=== PATIENT | female | born 1985 | race Caucasian/White ===

== ENCOUNTER 2020-02-22 12:36 | Inpatient (IN) | payer SELFPAY ==
[2020-02-22] MEDS ORDERED: Ondansetron PF 4 MG/2 ML Vial IVP PRN (15:43)
[2020-02-22] MEDS ORDERED: Dextrose 5% in Water 1,000 ML IV PRN (15:43)
[2020-02-22] MEDS ORDERED: Calcium Carbonate 500 MG ChewTAB PO PRN (15:43)
[2020-02-22] MEDS ORDERED: Promethazine HCl 25 MG/ML VIAL IM PRN (15:43)
[2020-02-22] MEDS ORDERED: Dextrose 50% Abboject 50 ML SYRINGE SLOW IVP PRN (15:43)
[2020-02-22] MEDS ORDERED: Mag-Al 1200 mg/1200 mg/30 ML UDCUP PO PRN (15:43)
[2020-02-22] MEDS ORDERED: hydrALAZINE 20 MG/ML VIAL SLOW IVP PRN (15:43)
[2020-02-22] MEDS ORDERED: Morphine 2 MG/ML VIAL SLOW IVP PRN (15:43)
[2020-02-22] MEDS ORDERED: Sodium Chloride 0.9% 1,000 ML IV SCH ×2 (15:45→17:00)
[2020-02-22] MEDS: Morphine 4 MG/ML VIAL SLOW IVP PRN ×2 (16:18→22:58)
[2020-02-22] MEDS: Piperacillin/Tazobactam 3.375 GM in Sodium Chloride 0.9% 100 ML IVPB SCH ×2 (16:21→21:31)
[2020-02-22 16:25] VITALS: BMI 41.1
[2020-02-22] MEDS: Ketorolac Tromethamine 30 MG/ML VIAL IVP SCH ×2 (17:59→23:48)
[2020-02-22] MEDS ORDERED: Lactated Ringer's 1,000 ML IV SCH (18:00)
--- NOTE | 2020-02-22 18:25 | HP ---
CHIEF COMPLAINT: Severe epigastric pain. HISTORY OF PRESENT ILLNESS: This is a 34-year-old female with a 2-day history of midepigastric pain radiating to back associated with nausea. No fever. She has had several episodes in the past few years, lasting 2 to 4 hours, but this is the worst ever. She went to the emergency room at [facility], where an ultrasound showed multiple cholelithiasis as well as elevated liver functions and elevated amylase and lipase. PAST MEDICAL HISTORY: Significant for obesity. PAST SURGICAL HISTORY: She had a sleeve gastrectomy in 2012. MEDICATIONS: No medications. ALLERGIES: NO KNOWN DRUG ALLERGIES. SOCIAL HISTORY: She is . She is a veterinary tech. No tobacco or alcohol. FAMILY HISTORY: Rheumatoid arthritis. Her father of acute myelocytic leukemia. PHYSICAL EXAMINATION: VITAL SIGNS: She is afebrile, temperature 98.4, heart rate 78, and blood pressure 116/64. GENERAL: She is an obese female, lying, still moaning. HEENT: No jaundice. LUNGS: Clear. HEART: Regular rate and rhythm. ABDOMEN: Obese, soft, very tender in the right upper quadrant. EXTREMITIES: Unremarkable. LABORATORY DATA: Her urinalysis is clear. Her white count is 7.2, hemoglobin and hematocrit of 12 and 36, and platelet count 210. Her electrolytes were fine, but elevated glucose of 112. Her ALT is 74, AST of 815, GGT of 246, T bilirubin is 2. Her lipase was 7928. She had an ultrasound showing cholelithiasis with nonspecific gallbladder wall thickening. The CT scan showed minimal gallbladder wall thickening in the fundus. No pericholecystic fluid. ASSESSMENT: Biliary pancreatitis. PLAN: Bowel rest, pain control, GI consult. Job ID: [id number]
--- NOTE | 2020-02-22 18:52 | CON ---
DATE OF CONSULTATION: 02/22/2020 CHIEF COMPLAINT: Abdominal pain. HISTORY OF PRESENT ILLNESS: Ms. Miller is a 34-year-old woman who had sudden onset of epigastric cramping pain on Friday evening. The pain radiated diffusely through her abdomen, but not to her back or chest. Friday afternoon, she went to [facility] where she had labs drawn, which showed elevated liver tests with a bilirubin of 2, AST of 815, ALT of 784, and alkaline phosphatase 136. She had an ultrasound performed that showed gallstones and a 4 mm common bile duct. She had a CT scan that showed minimal thickening of the gallbladder without biliary dilation. She received 2 L of IV fluids per the patient report. She was discharged home. She returned back to the [facility] ER earlier this morning and she had blood work repeated. This morning, her total bilirubin had increased to 2.8. Her AST decreased to 387 and ALT was 578 with an alkaline phosphatase of 142. Her amylase was 864. She had another ultrasound that again showed gallstones and a 6 mm bile duct. She received 1 L of IV fluids and was transferred to [place] for further care. She has had nausea, but no vomiting. No diarrhea, constipation, or blood in the stool. She did eat chicken fried steak in the evening just before onset of her pain. She has had a few episodes of similar pain around once every couple of months over the last year and occasional similar pain going back to 2014. Her pain usually would last for a few hours and then would go away. However, this pain came and then has remained constant. She has gained 40 pounds over the last year. PAST MEDICAL HISTORY: Depression and obesity. PAST SURGICAL HISTORY: Sleeve gastrectomy. FAMILY HISTORY: Negative for GI malignancy. SOCIAL HISTORY: Rare alcohol once a year. No drugs. No smoking. ALLERGIES: NO KNOWN DRUG ALLERGIES. MEDICATIONS: She had been on Wellbutrin and Zoloft, but quit taking these a couple of months ago because she was feeling better. She stopped these abruptly, but did not have any significant withdrawal symptoms. REVIEW OF SYSTEMS: Negative x10 systems reviewed except as stated in history of present illness. PHYSICAL EXAMINATION: VITAL SIGNS: Her temperature 98.0, her pulse was 84, blood pressure 108/75. GENERAL: She is in no acute distress, but she appears uncomfortable with her pain. She is alert and oriented x3. HEENT: Eyes have no scleral icterus. Oropharynx is clear without lesions. LYMPHATIC: No cervical or supraclavicular lymphadenopathy. LUNGS: Clear to auscultation bilaterally. HEART: Regular rate and rhythm without murmur. ABDOMEN: Soft, tender throughout the upper abdomen without guarding. Bowel sounds are hypoactive, but present. EXTREMITIES: No lower extremity edema. NEUROLOGIC: Cranial nerves are grossly intact. LABORATORY DATA: As stated in history of present illness. Her white blood cell count was 9.5 with hemoglobin of 12.8. IMAGING: As stated in the history of present illness at [facility] ER. She also had a COVID test that had a negative antigen at [facility]. IMPRESSION: 1. Gallstone pancreatitis. CT scan yesterday did not show any signs of necrosis or pancreatic abnormality. 2. Choledocholithiasis. Her bilirubin increased from 2 to 2.8 today. Transaminases are in the 100s. This is in the setting of acute pancreatitis. RECOMMENDATIONS: 1. Recheck her liver tests in the morning. If they are trending down, then she can proceed with laparoscopic cholecystectomy with intraoperative cholangiogram. 2. If her liver tests are not significantly improving, then recommend first proceeding with ERCP. 3. Will give additional IV fluid boluses. 4. Antibiotics with Zosyn. 5. I explained the procedure of ERCP in detail along with the risks and benefits of the procedure. Dr. Xiao will be covering the GI service tomorrow and will be performing the procedure if indicated. The patient is aware of this. Job ID: [id number]
[2020-02-22] MEDS: Lactated Ringer's 1,000 ML IV SCH (19:15)
[2020-02-22] MEDS: Famotidine/PF 20 mg/2ml Vial SLOW IVP SCH (21:32)
[2020-02-22] MEDS: Famotidine 20 MG TAB PO SCH (21:32)
[2020-02-23] MEDS: Morphine 4 MG/ML VIAL SLOW IVP PRN ×3 (03:57→18:30)
[2020-02-23] MEDS: Piperacillin/Tazobactam 3.375 GM in Sodium Chloride 0.9% 100 ML IVPB SCH ×4 (03:57→21:06)
[2020-02-23] MEDS: Lactated Ringer's 1,000 ML IV SCH ×3 (04:02→18:28)
[2020-02-23] MEDS: Ketorolac Tromethamine 30 MG/ML VIAL IVP SCH ×3 (05:50→16:53)
[2020-02-23 05:51] LABS: #Eosinphils 0.2 thou/uL (0.0-0.7); #Lymphocytes 1.3 thou/uL (1.20-3.40); #Monocytes 0.5 thou/uL (0.11-0.59); %Basophils 0.6 % (0.0-1.0); %Lymphocytes 15.7 % (21.0-51.0); %Monocytes 6.4 % (0.0-10.0); %Neutrophils 75.3 % (42.0-75.0); Hemoglobin 11.5 g/dL (12.0-16.0); Mean Corpuscular HGB CONC 33.9 g/dL (32.0-36.0); Mean Corpuscular Hemoglobin 29.7 pg (27.0-31.0); Mean Corpuscular Volume 87.5 fL (78.0-98.0); Mean Platelet Volume 8.8 fL (7.4-10.4); Platelet Count 151 thou/uL (130-400); RBC Distribution Width 11.9 % (11.5-14.5); Red Blood Cell (RBC) Count 3.86 mill/uL (4.20-5.40); White Blood Cell (WBC) Count 7.9 thou/uL (4.8-10.8)
[2020-02-23 06:11] LABS: ALT (SGPT) 386 U/L (8-55); AST (SGOT) 137 U/L (5-34); Albumin 2.9 g/dL (3.5-5.0); Alkaline Phosphatase 125 U/L (40-110); Anion Gap 12 mmol/L (10-20); BUN (Urea Nitrogen) 9 mg/dL (7.0-18.7); Calc. Creatinine Clearance 196 mL/min (70-130); Calcium 7.8 mg/dL (7.8-10.44); Carbon Dioxide 22 mmol/L (22-29); Chloride 107 mmol/L (98-107); Estimated GFR-MDRD Greater than 90; Globulin 2.6 g/dL (2.4-3.5); Glucose 75 mg/dL (70-105); Lipase 738 U/L (8-78); Potassium 3.7 mmol/L (3.5-5.1); Protein, Total 5.5 g/dL (6.0-8.3); Sodium 137 mmol/L (136-145)
[2020-02-23] MEDS: Famotidine/PF 20 mg/2ml Vial SLOW IVP SCH ×2 (08:03→20:53)
[2020-02-23] MEDS: Famotidine 20 MG TAB PO SCH ×2 (08:07→21:06)
[2020-02-23] MEDS ORDERED: Dexamethasone 20 MG/5 ML VIAL ONE (08:43)
[2020-02-23] MEDS ORDERED: Ondansetron PF 4 MG/2 ML Vial ONE (08:43)
[2020-02-23] MEDS ORDERED: PROPOFOL 200 MG/20 ML VIAL ONE (08:43)
[2020-02-23] MEDS ORDERED: Glycopyrrolate 0.2 MG/ML 5 ML SYRINGE ONE (08:43)
[2020-02-23] MEDS ORDERED: Lidocaine 1% PF 5 ML VIAL ONE (08:43)
[2020-02-23] MEDS ORDERED: Ketorolac Tromethamine 30 MG/ML VIAL ONE (08:43)
[2020-02-23] MEDS ORDERED: Rocuronium Bromide 10 MG/ML (10ML VIAL) ONE (08:43)
[2020-02-23] MEDS ORDERED: Meperidine HCl/PF 25 MG/ML VIAL SLOW IVP PRN (11:06)
[2020-02-23] MEDS ORDERED: Promethazine HCl 25 MG/ML VIAL IM PRN ×3 (11:06→13:09)
[2020-02-23] MEDS ORDERED: Ondansetron HCl/PF 4 MG/2 ML Vial IVP PRN ×2 (11:06→13:09)
[2020-02-23] MEDS ORDERED: Promethazine HCl 25 MG/ML VIAL SLOW IVP PRN ×2 (11:06→13:09)
[2020-02-23] MEDS ORDERED: Fentanyl 100 MCG/2 ML VIAL ONE ×3 (11:22→13:49)
[2020-02-23] MEDS ORDERED: Midazolam HCl 2 mg/2 ml Vial ONE (11:22)
[2020-02-23] MEDS ORDERED: Bupivacaine 0.25% HCL 30 ML VIAL ONE (11:23)
[2020-02-23] MEDS ORDERED: Lidocaine 1% w/Epinephrine 1:100K 20 ML VIAL ONE (11:23)
[2020-02-23] MEDS ORDERED: Iothalamate Meglumine 60% 50 ML VIAL FS ONE (11:45)
[2020-02-23] MEDS ORDERED: Ondansetron PF 4 MG/2 ML Vial IVP PRN (13:00)
[2020-02-23] MEDS ORDERED: hydrALAZINE 20 MG/ML VIAL SLOW IVP PRN (13:00)
[2020-02-23] MEDS ORDERED: Dextrose 5% in Water 1,000 ML IV PRN (13:00)
[2020-02-23] MEDS ORDERED: Dextrose 50% Abboject 50 ML SYRINGE SLOW IVP PRN (13:00)
[2020-02-23] MEDS ORDERED: Mag-Al 1200 mg/1200 mg/30 ML UDCUP PO PRN (13:00)
[2020-02-23] MEDS ORDERED: Calcium Carbonate 500 MG ChewTAB PO PRN (13:00)
[2020-02-23] MEDS ORDERED: HYDROcodone/Acetaminophen 10/325 mg Tablet PO PRN (13:00)
--- NOTE | 2020-02-23 14:02 | PRG ---
DATE OF SERVICE: 02/23/2020 REASON FOR CONSULTATION: Possible choledocholithiasis, gallstone pancreatitis. SUBJECTIVE: The patient states that she is feeling better today, but has been taking numerous pain medications over the course of last night and today which were controlling her pain at the current time. However, she does continue to have a sharp stabbing midepigastric abdominal pain today as well. Otherwise, she denies any nausea, vomiting, fevers, chills, hematemesis, melena, or hematochezia. She is on-call for the OR today with plans for laparoscopic cholecystectomy and intraoperative cholangiogram at that time. OBJECTIVE: VITAL SIGNS: Temperature 97.7, pulse 79, blood pressure 96/62, respiratory rate 16, saturating 95% on room air. GENERAL: The patient was lying in bed, in no acute distress. Alert and oriented x4. CARDIOVASCULAR: Regular rate and rhythm. RESPIRATORY: Clear to auscultation bilaterally. ABDOMEN: Normoactive bowel sounds. Soft, nondistended. Tenderness to palpation in the right upper quadrant, midepigastric, and left mid abdomen with both light and deep palpation. EXTREMITIES: No cyanosis, clubbing, or edema. LABORATORY DATA: CBC with a white blood cell count of 7.9, hemoglobin 11.5, hematocrit 33.8, platelets 151. Chemistry with a sodium of 137, potassium 3.7, chloride 107, CO2 of 22, BUN 9, creatinine 0.73, glucose 75. AST 137, ALT 386, alkaline phosphatase 125, total bilirubin 1.0, lipase 738. IMAGING DATA: An intraoperative cholangiogram was performed during her laparoscopic cholecystectomy on February 23, 2020, and while the official read by the radiologist is still pending. Per my read, there was no evidence of obstruction with contrast filling the small bowel without difficulty. ASSESSMENT AND PLAN: The patient is a 34-year-old female with past medical history of depression and obesity, status post sleeve gastrectomy, presenting with probable choledocholithiasis, now with a passed stone and gallstone pancreatitis. Choledocholithiasis: The patient initially presented with increased right upper quadrant/midepigastric abdominal pain as well as a significant elevation in her LFTs with imaging showing the presence of gallstones, but no significant dilation of common bile duct. With an elevated total bilirubin prior to admission, there was an increased risk of choledocholithiasis, so she was ultimately transferred from the [facility] ER to [facility] for further evaluation. However, this morning, the patient's total bilirubin had normalized to 1 and with mild improvement in her abdominal pain was more consistent with a passed stone rather than continued choledocholithiasis. The decision was made to then proceed with a laparoscopic cholecystectomy with an IOC and ERCP held in reserve if obstruction was noted on the IOC. Per my read from the intraoperative cholangiogram performed today, it reveals the easy passage of contrast into the small bowel without any evidence of filling defects, making continued choledocholithiasis much less likely. Recommendations: 1. Would continue to trend her LFTs daily for continue monitoring of resolution of liver inflammation. 2. Withhold on ERCP for now unless the radiologist feels that there is a filling defect in the distal common bile duct. Gallstone pancreatitis: The patient initially presented with increased right upper quadrant/midepigastric abdominal pain radiating into the left mid abdomen and was associated with significantly elevated LFTs and a serum lipase of approximately 7000. However, with more conservative management with IV fluids, n.p.o. status and pain control with narcotics, this has improved with a lipase of 700 earlier today. Based on her current labs, it appears that she may have had a common bile duct stone that has recently passed and in which case the laparoscopic cholecystectomy performed today will hopefully provide a more definitive/longstanding prevention from further episodes of choledocholithiasis. Recommendations: 1. Would continue IV fluids as you are doing while the patient is n.p.o. and slowly advance her diet after her laparoscopic cholecystectomy. 2. Pain control per primary team. 3. Continue to trend LFTs daily. Serial measurement of lipase is not indicated at this time as it does not portend improving or worsening prognosis. We will follow peripherally for now. Please call with any questions. Job ID: [id number]
--- NOTE | 2020-02-23 14:12 | RAD ---
OPERATIVE CHOLANGIOGRAM: 02/23/20 INDICATIONS: Intraoperative cholangiogram procedure performed. FINDINGS/IMPRESSION: Single image shows opacification of the common bile duct with contrast seen in the duodenum. No filli ng defect or stricture identified. POS: AGW
[2020-02-23 14:29] LABS: SARS-CoV-2 MS2 Positive; SARS-CoV-2 N Gene Negative; SARS-CoV-2 S Gene Negative; SARS-CoV-2 by NAA Not Detected (NotDetected); SARS-CoV-2 orf1ab Negative
[2020-02-23] MEDS ORDERED: FLU VACC QS2020-21(6MOS UP)/PF 60 MCG/0.5 ML SYRINGE IM ONE (16:45)
[2020-02-23] MEDS: HYDROcodone/Acetaminophen 10/325 mg Tablet PO PRN (16:52)
[2020-02-24] MEDS: Ketorolac Tromethamine 30 MG/ML VIAL IVP SCH ×3 (00:54→11:50)
[2020-02-24] MEDS: HYDROcodone/Acetaminophen 10/325 mg Tablet PO PRN (00:58)
[2020-02-24] MEDS: Lactated Ringer's 1,000 ML IV SCH ×2 (03:26→11:41)
[2020-02-24] MEDS: Piperacillin/Tazobactam 3.375 GM in Sodium Chloride 0.9% 100 ML IVPB SCH ×2 (03:26→09:24)
[2020-02-24 05:15] LABS: #Eosinphils 0.1 thou/uL (0.0-0.7); #Lymphocytes 1.7 thou/uL (1.20-3.40); #Monocytes 0.7 thou/uL (0.11-0.59); #Neutrophils 7.3 thou/uL (1.40-6.50); %Basophils 0.3 % (0.0-1.0); %Eosinophils 0.6 % (0.0-10.0); %Monocytes 7.4 % (0.0-10.0); %Neutrophils 74.7 % (42.0-75.0); Hemoglobin 10.9 g/dL (12.0-16.0); Mean Corpuscular HGB CONC 34.2 g/dL (32.0-36.0); Mean Corpuscular Hemoglobin 29.6 pg (27.0-31.0); Mean Corpuscular Volume 86.5 fL (78.0-98.0); Mean Platelet Volume 8.9 fL (7.4-10.4); Platelet Count 157 thou/uL (130-400); RBC Distribution Width 11.9 % (11.5-14.5); Red Blood Cell (RBC) Count 3.69 mill/uL (4.20-5.40); White Blood Cell (WBC) Count 9.8 thou/uL (4.8-10.8)
[2020-02-24 05:36] LABS: ALT (SGPT) 265 U/L (8-55); AST (SGOT) 82 U/L (5-34); Albumin 2.9 g/dL (3.5-5.0); Alkaline Phosphatase 110 U/L (40-110); Anion Gap 10 mmol/L (10-20); BUN (Urea Nitrogen) 7 mg/dL (7.0-18.7); Bilirubin, Total 0.6 mg/dL (0.2-1.2); Calc. Creatinine Clearance 193 mL/min (70-130); Calcium 7.8 mg/dL (7.8-10.44); Carbon Dioxide 23 mmol/L (22-29); Chloride 107 mmol/L (98-107); Estimated GFR-MDRD Greater than 90; Globulin 2.7 g/dL (2.4-3.5); Glucose 106 mg/dL (70-105); Lipase 102 U/L (8-78); Potassium 3.8 mmol/L (3.5-5.1); Protein, Total 5.6 g/dL (6.0-8.3); Sodium 136 mmol/L (136-145)
[2020-02-24 08:07] VITALS: TEMP 98.2
[2020-02-24] MEDS ORDERED: Enoxaparin Sodium 40 MG/0.4 ML SYRINGE SC SCH (09:00)
[2020-02-24] MEDS: Famotidine 20 MG TAB PO SCH (09:24)
[2020-02-24] MEDS: Famotidine/PF 20 mg/2ml Vial SLOW IVP SCH (09:25)
--- NOTE | 2020-02-24 10:14 | OP ---
DATE OF PROCEDURE: 02/23/2020 PREOPERATIVE DIAGNOSIS: Biliary pancreatitis. PROCEDURE PERFORMED: Laparoscopic cholecystectomy with cholangiogram. INDICATIONS: This is a 34-year-old female who was admitted with severe abdominal pain and hyperlipasemia. CT and ultrasound showed multiple gallstones. She got better overnight. Her lipase went down from 4000 to 400. FINDINGS: The cholangiogram showed free flow of contrast in the duodenum. No filling defects. She had acute cholecystitis. DESCRIPTION OF PROCEDURE: After informed consent was obtained, the patient was taken to the operating room, given general endotracheal anesthesia, placed in supine position. Abdomen was prepped and draped in the usual fashion. Local anesthesia was infiltrated subcutaneously and deep. A subumbilical incision was performed. Subcu divided sharply. The fascia was grasped and 2 stay sutures of 0 Vicryl placed on either side of midline. Midline incised. Digital palpation revealed no local adhesions. A blunt 12-mm trocar inserted. Pneumoperitoneum was created to a pressure of 15 mmHg. A 0-degree laparoscope inserted under direct vision. Three 5-mm ports were placed subcostally. The gallbladder grasped and advanced superiorly. The peritoneum was dissected to reveal the cystic duct and cystic artery in critical view. A clip was placed at the base of the gallbladder and an incision made in the cystic duct. The Arrow cholangiocatheter inserted. Intraoperative cholangiogram performed, which showed free flow in the duodenum, no filling defects. The catheter was removed. The cystic duct triply ligated and divided. The artery triply ligated and divided. The gallbladder removed from its fossa utilizing electrocautery, placed in Endosac, switched out to a 5-mm scope because there were adhesions around the umbilicus. These had to be lysed. The gallbladder removed from the abdomen through the umbilical port. The abdomen was then re-insufflated. There was some bleeding in the omentum that was attached to this adhesion. I was able to get that controlled with some hemoclips. Hemostasis was assured. Then, the fascia closed with a GraNee needle and 0 Vicryl [id number]. Scope removed. Trocars removed. Skin closed with interrupted 4-0 Rapide. Dermabond applied. The patient tolerated the procedure well, transferred to Recovery in good condition. Sponge and needle count verified correct x2. Job ID: [id number]
[2020-02-24 11:20] VITALS: BP 109/75
--- NOTE | 2020-02-25 10:31 | DIS ---
DATE OF ADMISSION: 02/22/2020 DATE OF DISCHARGE: 02/24/2020 DISCHARGE DIAGNOSIS: Biliary pancreatitis. PROCEDURES DURING ADMISSION: Laparoscopic cholecystectomy with intraoperative cholangiogram. HOSPITAL COURSE: The patient was admitted, given IV fluids, bowel rest. The next day, she felt much better. GI was consulted because her LFTs and amylase were so high, but by the next day, it had come down, so the decision was made to proceed with a lap pieter with cholangiogram. She was found to have mild acute cholecystitis with a negative cholangiogram, free flow in the duodenum. Postoperatively, she has done well. Pain was controlled on p.o. meds. She was discharged to home on hydrocodone and Zofran. She will follow up with me in 2 weeks. Job ID: [id number]
== END 2020-02-24 12:38 | disposition home or self-care (01) | DRG 418 ==
LOC: SURG A 14:58
PROVIDERS: ADMIT Surgery; ATTEND Surgery
PROC: 0FT44ZZ Resection of Gallbladder, Percutaneous Endoscopic Approach (ICD-10-PCS; principal; 2020-02-23)
PROC: BF13YZZ Fluoroscopy of Gallbladder and Bile Ducts using Other Contrast (ICD-10-PCS; 2020-02-23)
DX: K85.10 Biliary acute pancreatitis without necrosis or infection (principal); Z68.41 Body mass index [BMI] 40.0-44.9, adult; K80.42 Calculus of bile duct with acute cholecystitis without obstruction; Z20.828 Contact with and (suspected) exposure to other viral communicable diseases; F32.9 Major depressive disorder, single episode, unspecified; E66.9 Obesity, unspecified; Z98.84 Bariatric surgery status
CPT/HCPCS: 36415; 47532; 80053; 83690; 85025; 87635; 88304; J1100; J1610; J1650; J1885; J2250; J2270; J2405; J2543; J2550; J2704; J3010; J3490; S0020; S0028; U0003

== ENCOUNTER 2022-02-14 15:25 | Emergency (ER) | payer BC, OTHER ==
[2022-02-14] MEDS ORDERED: Ketorolac Tromethamine 30 MG/ML VIAL ONE (17:54)
[2022-02-14 18:15] LABS: #Basophils 0.1 thou/uL (0.0-0.2); #Eosinphils 0.3 thou/uL (0.0-0.7); #Lymphocytes 2.7 thou/uL (1.20-3.40); #Monocytes 0.6 thou/uL (0.11-0.59); #Neutrophils 7.1 thou/uL (1.40-6.50); %Basophils 0.9 % (0.0-1.0); %Eosinophils 2.8 % (0.0-10.0); %Lymphocytes 25.1 % (21.0-51.0); %Monocytes 5.5 % (0.0-10.0); %Neutrophils 65.8 % (42.0-75.0); Hemoglobin 13.2 g/dL (12.0-16.0); Mean Corpuscular HGB CONC 33.6 g/dL (32.0-36.0); Mean Corpuscular Hemoglobin 28.9 pg (27.0-31.0); Mean Platelet Volume 8.2 fL (7.4-10.4); Platelet Count 247 thou/uL (130-400); RBC Distribution Width 12.4 % (11.5-14.5); Red Blood Cell (RBC) Count 4.56 mill/uL (4.20-5.40); White Blood Cell (WBC) Count 10.8 thou/uL (4.8-10.8)
[2022-02-14 18:35] LABS: ALT (SGPT) 18 U/L (8-55); AST (SGOT) 15 U/L (5-34); Alkaline Phosphatase 89 U/L (40-110); Anion Gap 12 mmol/L (10-20); BUN (Urea Nitrogen) 10 mg/dL (7.0-18.7); Bilirubin, Total 0.3 mg/dL (0.2-1.2); Calc. Creatinine Clearance 0 mL/min (70-130); Calcium 9.1 mg/dL (7.8-10.44); Carbon Dioxide 26 mmol/L (22-29); Chloride 105 mmol/L (98-107); Estimated GFR 75; Globulin 3.9 g/dL (2.4-3.5); Glucose 125 mg/dL (70-105); Potassium 3.8 mmol/L (3.5-5.1); Protein, Total 7.9 g/dL (6.0-8.3); Sodium 139 mmol/L (136-145)
== END 2022-02-14 22:00 | disposition short-term general hospital (02) ==
LOC: ERS 15:25
DX: N76.4 Abscess of vulva (principal)
CPT/HCPCS: 36415; 80053; 83605; 85025; 96372; 99284; J1885